=== PATIENT | male | born 1940 | race Caucasian/White ===

== ENCOUNTER 2022-06-09 20:10 | Emergency (ER) | payer SELFPAY ==
--- NOTE | 2022-06-09 23:00 | NUR ---
Patient not triaged by [employer]. Called patient @[id number] to triage. Patient not in the waiting room
== END 2022-06-10 01:22 | disposition left against medical advice (07) ==
LOC: ER 20:10
DX: Z53.21 Procedure and treatment not carried out due to patient leaving prior to being seen by health care provider (principal)